=== PATIENT | male | born 1990 | race Caucasian/White ===

== ENCOUNTER 2021-08-22 18:24 | Emergency (ER) | payer BC ==
[~2021-08-22] VITALS: Ht 188 cm; Wt 117.8 kg
--- NOTE | 2021-08-22 22:53 | REPVR ---
PROCEDURE INFORMATION: Exam: XR Right Femur Exam date and time: 08/22/2021 10:07 PM Age: 31 years old Clinical indication: Pain; Thigh; Right; Additional info: Injury TECHNIQUE: Imaging protocol: XR Right femur. Views: 2 views. COMPARISON: No relevant prior studies available. FINDINGS: Bones/joints: Unremarkable. No acute fracture. Soft tissues: Unremarkable. IMPRESSION: Negative right femur. Electronically signed by: Clement Tomlin On 08/22/2021 22:52:40 PM
[2021-08-23] MEDS ORDERED: methocarbamoL 500 MG TAB PO ONE (01:45)
[2021-08-23] MEDS ORDERED: KETOROLAC 30 MG/ML 1ML VIAL IM ONE (01:45)
[2021-08-23] MEDS ORDERED: METH-1164 PO (02:25)
[2021-08-23 02:30] VITALS: BP 136/89
== END 2021-08-23 02:40 | disposition home or self-care (01) ==
LOC: M ED 18:24
DX: S76.211A Strain of adductor muscle, fascia and tendon of right thigh, initial encounter (principal); W01.0XXA Fall on same level from slipping, tripping and stumbling without subsequent striking against object, initial encounter; Y92.9 Unspecified place or not applicable; Y93.9 Activity, unspecified; Y99.0 Civilian activity done for income or pay
CPT/HCPCS: 73552; 96372; 99283; J1885